=== PATIENT | female | born 1965 ===

== ENCOUNTER 2016-06-06 13:52 | Emergency (ER) | payer SELFPAY ==
[2016-06-06 14:04] VITALS: BMI 30.9
[2016-06-06 14:07] VITALS: TEMP 98.7
--- NOTE | 2016-06-06 14:18 | ED PDOC ---
Arrival/HPI - General Chief Complaint: Lower Extremity Problem/Injury Time Seen by Provider: 06/06/16 14:09 Historian: Patient - History of Present Illness Narrative History of Present Illness (Text): 06/06/16 14:16 51yo female with no PMhx present with complaint of b/l foot pain x 2months. Pain is usually with weight bearing. States pain became increasingly worse. Denies trauma, calf pain, SOB, any other complaint. Past Medical History - Provider Review Nursing Documentation Reviewed: Yes - Psychiatric Hx Substance Use: No Family/Social History - Physician Review Nursing Documentation Reviewed: Yes Family/Social History: Unknown Family HX Smoking Status: Never Smoked Hx Alcohol Use: Yes Frequency of alcohol use: Socially Hx Substance Use: No Allergies/Home Meds Allergies/Adverse Reactions: Allergies No Known Allergies Allergy (Verified 06/06/16 14:04) Review of Systems - Physician Review All systems were reviewed & negative as marked: Yes - Review of Systems Constitutional: Normal Eyes: Normal ENT: Normal Respiratory: Normal Cardiovascular: Normal Gastrointestinal: Normal Genitourinary Female: Normal Musculoskeletal: Arthralgias (B/L foot pain) Skin: Normal Neurological: Normal Endocrine: Normal Hemo/Lymphatic: Normal Psychiatric: Normal Physical Exam Vital Signs Reviewed: Yes Vital Signs Temp Pulse Resp BP Pulse Ox 06/06/16 17:09 90 17 117/80 98 06/06/16 15:44 91 H 18 116/79 98 06/06/16 14:04 98.7 F 100 H 16 118/84 97 Temperature: Afebrile Blood Pressure: Normal Pulse: Regular Respiratory Rate: Normal Appearance: Positive for: Well-Appearing, Non-Toxic, Comfortable Pain Distress: None Mental Status: Positive for: Alert and Oriented X 3 - Systems Exam Head: Present: Atraumatic, Normocephalic Pupils: Present: PERRL Extroacular Muscles: Present: EOMI Conjunctiva: Present: Normal Mouth: Present: Moist Mucous Membranes Neck: Present: Normal Range of Motion Respiratory/Chest: Present: Clear to Auscultation, Good Air Exchange. No: Respiratory Distress, Accessory Muscle Use Cardiovascular: Present: Regular Rate and Rhythm, Normal S1, S2. No: Murmurs Abdomen: Present: Normal Bowel Sounds. No: Tenderness, Distention, Peritoneal Signs Back: Present: Normal Inspection Upper Extremity: Present: Normal Inspection. No: Cyanosis, Edema Lower Extremity: Present: Normal Inspection, NORMAL PULSES, Normal ROM, Neurovascularly Intact. No: Edema, CALF TENDERNESS, Tenderness, Swelling, Erythema, Deformity, Temperature Abnormalties Neurological: Present: GCS=15, CN II-XII Intact, Speech Normal Skin: Present: Warm, Dry, Normal Color. No: Rashes Psychiatric: Present: Alert, Oriented x 3, Normal Insight, Normal Concentration Medical Decision Making ED Course and Treatment: 06/06/16 17:25 B/L foot xray - No acute finding Pt was ambulatory. Result was DW the pt. She was given rx of Meño and Ibuprofen for plantar fasciitis. Refereed to Ortho. TRT ED for any new or worsening symptoms - RAD Interpretation Radiology Orders: 06/06/16 14:14 FOOT 3 VIEWS BI [RAD] Stat - Medication Orders Current Medication Orders: Discontinued Medications Prednisone (Prednisone Tab) 40 mg PO STAT STA Stop: 06/06/16 16:42 Last Admin: 06/06/16 17:05 Dose: 40 MG Tramadol HCl (Ultram) 50 mg PO STAT STA Stop: 06/06/16 14:16 Last Admin: 06/06/16 14:53 Dose: 50 MG Disposition/Present on Arrival - Present on Arrival Any Indicators Present on Arrival: No History of DVT/PE: No History of Uncontrolled Diabetes: No Urinary Catheter: No History of Decub. Ulcer: No History Surgical Site Infection Following: None - Disposition Have Diagnosis and Disposition been Completed?: Yes Diagnosis: Foot pain, bilateral Disposition: HOME/ ROUTINE Disposition Time: 16:40 Patient Plan: Discharge Condition: STABLE Discharge Instructions (ExitCare): Arthralgia (ED) Additional Instructions: Follow up with a [employer] Return to ED for any new or worsening symptoms Prescriptions: Ibuprofen [Motrin Tab] 600 mg PO Q6 #20 tab traMADol [Ultram] 50 mg PO Q6 #8 tab Referrals: PCP,NO [Primary Care Provider] - Follow up with primary Yesica Suarez DPM [Staff Provider] - Follow up with primary
[2016-06-06 15:48] VITALS: O2SAT 98
--- NOTE | 2016-06-06 16:10 | RAD ---
PROCEDURE: Bilateral Feet Radiographs. HISTORY: foot pain COMPARISON: None. 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 JOINTS: Right Foot: Normal. No osteoarthritis. Left Foot: Normal. No osteoarthritis. SOFT TISSUES: Right Foot: Normal. Left Foot: Normal. OTHER FINDINGS: None. IMPRESSION: No acute findings
[2016-06-06 17:10] VITALS: BP 117/80; PULSE 90; RESP 17
== END 2016-06-06 17:09 | disposition home or self-care (01) ==
LOC: ED 13:52
DX: M79.672 Pain in left foot (principal); M79.671 Pain in right foot

== ENCOUNTER 2017-07-13 23:53 | Emergency (ER) | payer MEDICAID ==
[2017-07-14 00:04] VITALS: BMI 36.6
--- NOTE | 2017-07-14 00:10 | ED PDOC ---
Arrival/HPI - General Time Seen by Provider: 07/13/17 23:59 Historian: Patient, EMS - History of Present Illness Narrative History of Present Illness (Text): 07/14/17 00:09 Selma Ho is a 52 year old female who presents to the emergency department brought in for public intoxication. Patient was found by EMS inebriated and admits to drinking alcohol tonight. Patient denies any fevers, chills, chest pain, shortness of breath, abdominal pain, nausea, vomiting, diarrhea, back pain , neck pain, urinary symptoms, headache, dizziness, or any other complaint. Time/Duration: Other (tonight) Symptom Onset: Gradual Symptom Course: Unchanged Activities at Onset: Light Past Medical History - Provider Review Nursing Documentation Reviewed: Yes - Psychiatric Hx Substance Use: No Family/Social History - Physician Review Nursing Documentation Reviewed: Yes Family/Social History: Unknown Family HX Smoking Status: Never Smoked Hx Alcohol Use: Yes Hx Substance Use: No Allergies/Home Meds Allergies/Adverse Reactions: Allergies No Known Allergies Allergy (Verified 07/14/17 00:03) Review of Systems - Physician Review All systems were reviewed & negative as marked: Yes - Review of Systems Constitutional: Normal. absent: Fevers Eyes: Normal ENT: Normal Respiratory: Normal. absent: SOB, Cough Cardiovascular: Normal. absent: Chest Pain Gastrointestinal: Normal. absent: Abdominal Pain, Diarrhea, Nausea, Vomiting Genitourinary Female: Normal. absent: Dysuria, Frequency, Hematuria, Urine Output Changes Musculoskeletal: Normal. absent: Back Pain, Neck Pain Skin: Normal. absent: Rash Neurological: Normal. absent: Headache, Dizziness Endocrine: Normal Hemo/Lymphatic: Normal Psychiatric: Normal Physical Exam Vital Signs Reviewed: Yes Vital Signs Temp Pulse Resp BP Pulse Ox 07/14/17 05:01 96 H 18 121/76 99 07/14/17 02:34 90 18 138/82 97 07/14/17 00:22 98.4 F 87 16 142/50 L 92 L Temperature: Afebrile Blood Pressure: Normal Pulse: Regular Respiratory Rate: Normal Appearance: Positive for: Well-Appearing, Non-Toxic, Comfortable Pain Distress: None Mental Status: Positive for: Alert and Oriented X 3 - Systems Exam Head: Present: Atraumatic, Normocephalic Pupils: Present: PERRL Extroacular Muscles: Present: EOMI Conjunctiva: Present: Normal Mouth: Present: Moist Mucous Membranes Neck: Present: Normal Range of Motion Respiratory/Chest: Present: Clear to Auscultation, Good Air Exchange. No: Respiratory Distress, Accessory Muscle Use Cardiovascular: Present: Regular Rate and Rhythm, Normal S1, S2. No: Murmurs Abdomen: No: Tenderness, Distention, Peritoneal Signs Back: Present: Normal Inspection Upper Extremity: Present: Normal Inspection. No: Cyanosis, Edema Lower Extremity: Present: Normal Inspection. No: Edema Neurological: Present: GCS=15, CN II-XII Intact, Speech Normal Skin: Present: Warm, Dry, Normal Color. No: Rashes Psychiatric: Present: Alert, Oriented x 3, Normal Insight, Normal Concentration Medical Decision Making ED Course and Treatment: 07/14/17 00:10 Impression: 52 year old female brought in for alcohol intoxication tonight. Differential Diagnosis included but are not limited to: alcohol intoxication. Plan: -- Reassess and disposition Progress Notes: 07/14/17 05:34 Pt awake, alert, and in no acute distress. Ambulating with steady gait, clinically sober. Pt stable for d/c. - Scribe Statement The provider has reviewed the documentation as recorded by the Cipriano Jeff Provider Scribe Attestation: All medical record entries made by the Scribe were at my direction and personally dictated by me. I have reviewed the chart and agree that the record accurately reflects my personal performance of the history, physical exam, medical decision making, and the department course for this patient. I have also personally directed, reviewed, and agree with the discharge instructions and disposition. Disposition/Present on Arrival - Present on Arrival Any Indicators Present on Arrival: No History of DVT/PE: No History of Uncontrolled Diabetes: No Urinary Catheter: No History Surgical Site Infection Following: None - Disposition Have Diagnosis and Disposition been Completed?: Yes Diagnosis: Alcohol intoxication Disposition: HOME/ ROUTINE Disposition Time: 05:51 Patient Plan: Discharge Condition: STABLE Referrals: Alcoholics Anonymous [Outside] - Follow up with primary
[2017-07-14 06:32] VITALS: BP 119/60; PULSE 92; RESP 173; TEMP 98.2; O2SAT 96
== END 2017-07-14 06:25 | disposition home or self-care (01) ==
LOC: ED 23:53
DX: F10.129 Alcohol abuse with intoxication, unspecified (principal)